=== PATIENT | male | born 1955 | race Hispanic/Latino ===

== ENCOUNTER 2017-03-19 23:21 | Emergency (ER) | payer MEDICARE ==
[2017-03-20 00:41] LABS: Basophils % (Auto) 0.7 % (0.0-1.8); Eosinophils # (Auto) 0.1 K/mm3 (0.0-0.4); Eosinophils % (Auto) 1.4 % (0.0-4.3); Hematocrit 42.5 % (35.5-45.6); Hemoglobin 14.2 gm/dl (11.8-15.2); Lymphocytes # (Auto) 0.9 K/mm3 (1.2-5.4); Lymphocytes % (Auto) 12.8 % (13.4-35.0); Mean Corpuscular HGB Conc 33 % (32-34); Mean Corpuscular Hemoglobin 29 pg (28-32); Mean Corpuscular Volume 86 fl (84-94); Monocytes # (Auto) 0.5 K/mm3 (0.0-0.8); Monocytes % (Auto) 7.2 % (0.0-7.3); Platelet Count 152 K/mm3 (140-440); Red Blood Count 4.96 M/mm3 (3.65-5.03); Red Cell Distribution Width 15.6 % (13.2-15.2)
[2017-03-20 01:14] LABS: Albumin 3.7 g/dL (3.9-5)
[2017-03-20 02:32] VITALS: BP 155/120
--- NOTE | 2017-03-20 03:46 | Emergency Department Report ---
ED General Adult HPI - General Chief complaint: Overdose Stated complaint: HYPERGLYCEMIA/POSS OVERDOSE Time Seen by Provider: 03/20/17 03:34 Source: patient, EMS (ems notes not available at time of chart dictation), RN notes reviewed, old records reviewed Mode of arrival: Stretcher Limitations: No Limitations - History of Present Illness Initial comments: This is a 61-year-old male who was previously unknown to this provider, primary care doctor Dr. Phan Past medical history includes heart disease, diabetes, hypertension, high cholesterol, hypothyroidism, parkinsonism, depression with anxiety, peripheral neuropathy, Patient also has chronic pain, and falls with local pain specialist, Dr. Jose J Burgess Patient reports taking Roxicodone every 8 hours as needed for pain, Duncan, every 8 hours as needed for pain, and also takes as needed Xanax. The patient is brought to the hospital by EMS because of concern of accidental overdose. The patient is accompanied by family, who report that they were with the patient , in that he had an episode of talking strangely and seemingly becoming unresponsive. There is concern that the patient may have accidentally taken an exit tablet of his Roxicodone. All of his symptoms were resolved with Narcan, and the patient really denies headache, neck pain, chest pain, abdominal pain, shortness of breath, homicidality, suicidality, irritative/ obstructive urinary symptoms. -: Sudden Consistency: now resolved Improves with: medication Worsens with: none Associated Symptoms: denies: confusion, chest pain, cough, diaphoresis, fever/ chills, loss of appetite, malaise, nausea/vomiting, rash, shortness of breath, syncope, weakness - Related Data Home Medications Medication Instructions Recorded Confirmed Last Taken Finasteride [Propecia] 5 mg PO QDAY 06/23/13 04/16/15 04/15/15 Gabapentin [Neurontin] 600 mg PO Q8H 06/23/13 04/16/15 04/15/15 Simvastatin [Zocor TAB] 40 mg PO QHS 06/23/13 04/16/15 04/15/15 Insulin NPH, Human [NovoLIN N] unit SUB-Q 04/16/15 04/15/15 Insulin Regular, Human [HumuLIN R] unit IJ 04/16/15 04/15/15 Previous Rx's Medication Instructions Recorded Last Taken Type Amoxicillin/K Clav Tab [Augmentin 1 each PO Q12HR #30 tablet 04/22/15 Unknown Rx 875MG TAB] Insulin NPH, Human [NovoLIN N] 20 unit SUB-Q BIDDIAB #1 bottle 04/22/15 Unknown Rx Lisinopril [Zestril TAB] 20 mg PO QPM #30 tablet 04/22/15 Unknown Rx Metoprolol [Lopressor TAB] 25 mg PO BID #60 tablet 04/22/15 Unknown Rx Oxycodone HCl [Roxicodone TAB] 15 mg PO TID PRN #30 tablet 04/22/15 Unknown Rx Simvastatin [Zocor TAB] 40 mg PO QHS tablet 04/22/15 Unknown Rx Sulfamethoxazole/Trimethoprim 1 each PO Q12HR 20 Days tablet 04/22/15 Unknown Rx [Bactrim DS TAB] Aspirin EC [Aspirin Enteric Coated 81 mg PO QDAY #30 tablet. 06/05/15 Unknown Rx TAB] Clopidogrel [Plavix] 75 mg PO QDAY #30 tablet 06/05/15 Unknown Rx Naloxone HCl [Narcan] 4 mg NS Q1HR PRN #10 spray 03/20/17 Unknown Rx Allergies Allergy/AdvReac Type Severity Reaction Status Date / Time No Known Allergies Allergy Verified 03/19/17 23:45 ED Review of Systems ROS: Stated complaint: HYPERGLYCEMIA/POSS OVERDOSE Other details as noted in HPI ED Past Medical Hx - Past Medical History Previous Medical History?: Yes Hx Hypertension: Yes Hx Heart Attack/AMI: Yes Hx Congestive Heart Failure: No Hx Diabetes: Yes Hx Deep Vein Thrombosis: No Hx Arthritis: Yes Hx Asthma: No Hx COPD: No Additional medical history: Fibromyalgia, Parkinson'sPossible Anemia (has been transfused before) - Surgical History Past Surgical History?: Yes Hx Pacemaker: No Hx Internal Defibrillator: No Additional Surgical History: Diabetes-related foot surgeries - Social History Smoking Status: Never Smoker Substance Use Type: None - Medications Home Medications: Home Medications Medication Instructions Recorded Confirmed Last Taken Type Finasteride [Propecia] 5 mg PO QDAY 06/23/13 04/16/15 04/15/15 History Gabapentin [Neurontin] 600 mg PO Q8H 06/23/13 04/16/15 04/15/15 History Simvastatin [Zocor TAB] 40 mg PO QHS 06/23/13 04/16/15 04/15/15 History Insulin NPH, Human [NovoLIN N] unit SUB-Q 04/16/15 04/15/15 History Insulin Regular, Human [HumuLIN R] unit IJ 04/16/15 04/15/15 History Amoxicillin/K Clav Tab [Augmentin 1 each PO Q12HR #30 tablet 04/22/15 Unknown Rx 875MG TAB] Insulin NPH, Human [NovoLIN N] 20 unit SUB-Q BIDDIAB #1 bottle 04/22/15 Unknown Rx Lisinopril [Zestril TAB] 20 mg PO QPM #30 tablet 04/22/15 Unknown Rx Metoprolol [Lopressor TAB] 25 mg PO BID #60 tablet 04/22/15 Unknown Rx Oxycodone HCl [Roxicodone TAB] 15 mg PO TID PRN #30 tablet 04/22/15 Unknown Rx Simvastatin [Zocor TAB] 40 mg PO QHS tablet 04/22/15 Unknown Rx Sulfamethoxazole/Trimethoprim 1 each PO Q12HR 20 Days tablet 04/22/15 Unknown Rx [Bactrim DS TAB] Aspirin EC [Aspirin Enteric Coated 81 mg PO QDAY #30 tablet.dr 06/05/15 Unknown Rx TAB] Clopidogrel [Plavix] 75 mg PO QDAY #30 tablet 06/05/15 Unknown Rx Naloxone HCl [Narcan] 4 mg NS Q1HR PRN #10 spray 03/20/17 Unknown Rx ED Physical Exam - General Limitations: No Limitations General appearance: alert, in no apparent distress - Head Head exam: Present: atraumatic, normocephalic - Eye Eye exam: Present: normal appearance, EOMI, other (pupils are 2 mm bilaterally, and status post cataract surgery.). Absent: nystagmus - ENT ENT exam: Present: normal exam, normal orophraynx, mucous membranes moist, normal external ear exam - Neck Neck exam: Present: normal inspection, full ROM - Respiratory Respiratory exam: Present: normal lung sounds bilaterally. Absent: respiratory distress - Cardiovascular Cardiovascular Exam: Present: regular rate, irregular rhythm, normal heart sounds. Absent: systolic murmur, diastolic murmur, rubs, gallop - GI/Abdominal GI/Abdominal exam: Present: soft, normal bowel sounds. Absent: distended, tenderness, guarding, rebound, rigid, pulsatile mass - Rectal Rectal exam: Present: deferred - Extremities Exam Extremities exam: Present: normal inspection, full ROM, normal capillary refill. Absent: pedal edema, joint swelling, calf tenderness - Back Exam Back exam: Present: normal inspection, full ROM. Absent: tenderness, CVA tenderness (R), paraspinal tenderness, vertebral tenderness - Neurological Exam Neurological exam: Present: alert, oriented X3, CN II-XII intact, other ( Extraocular movements intact. Tongue midline. No facial droop. Facial sensation intact to light touch in the V1, V2, V3 distribution bilaterally. 5 and 5 strength in 4 extremities.. Sensation is intact to light touch in 4 extremities.). Absent: motor sensory deficit - Psychiatric Psychiatric exam: Present: normal affect, normal mood. Absent: homicidal ideation, suicidal ideation - Skin Skin exam: Present: warm, dry, intact, normal color. Absent: rash ED Course Vital Signs 03/20/17 03/20/17 03/20/17 01:30 01:43 01:45 Temperature 97.5 F L Pulse Rate 93 H 96 H Respiratory 14 8 L Rate Blood Pressure 155/89 Blood Pressure 149/103 [Left] O2 Sat by Pulse 91 98 96 Oximetry 03/20/17 03/20/17 03/20/17 02:01 02:02 02:15 Temperature Pulse Rate 96 H 93 H Respiratory 19 16 11 L Rate Blood Pressure 149/82 155/120 Blood Pressure [Left] O2 Sat by Pulse 97 98 99 Oximetry ED Medical Decision Making - Lab Data Result diagrams: 03/20/17 00:10 03/20/17 00:10 Vital Signs 03/20/17 03/20/17 03/20/17 01:30 01:43 01:45 Temperature 97.5 F L Pulse Rate 93 H 96 H Respiratory 14 8 L Rate Blood Pressure 155/89 Blood Pressure 149/103 [Left] O2 Sat by Pulse 91 98 96 Oximetry 03/20/17 03/20/17 03/20/17 02:01 02:02 02:15 Temperature Pulse Rate 96 H 93 H Respiratory 19 16 11 L Rate Blood Pressure 149/82 155/120 Blood Pressure [Left] O2 Sat by Pulse 97 98 99 Oximetry Lab Results 03/20/17 03/20/17 03/20/17 Range/Units 00:10 00:10 00:10 WBC 7.3 (4.5-11.0) K/mm3 RBC 4.96 (3.65-5.03) M/mm3 Hgb 14.2 (11.8-15.2) gm/dl Hct 42.5 (35.5-45.6) % MCV 86 (84-94) fl MCH 29 (28-32) pg MCHC 33 (32-34) % RDW 15.6 H (13.2-15.2) % Plt Count 152 (140-440) K/mm3 Lymph % (Auto) 12.8 L (13.4-35.0) % Victoria % (Auto) 7.2 (0.0-7.3) % Eos % (Auto) 1.4 (0.0-4.3) % Baso % (Auto) 0.7 (0.0-1.8) % Lymph # 0.9 L (1.2-5.4) K/mm3 Victoria # 0.5 (0.0-0.8) K/mm3 Eos # 0.1 (0.0-0.4) K/mm3 Baso # 0.0 (0.0-0.1) K/mm3 Seg Neutrophils % 77.9 H (40.0-70.0) % Seg Neutrophils # 5.7 (1.8-7.7) K/mm3 Sodium 137 (137-145) mmol/L Potassium 4.7 (3.6-5.0) mmol/L Chloride 97.6 L (98-107) mmol/L Carbon Dioxide 28 (22-30) mmol/L Anion Gap 16 mmol/L BUN 26 H (9-20) mg/dL Creatinine 1.5 (0.8-1.5) mg/dL Estimated GFR 48 ml/min BUN/Creatinine Ratio 17 % Glucose 424 H (75-100) mg/dL Calcium 9.0 (8.4-10.2) mg/dL Total Bilirubin 0.30 (0.1-1.2) mg/dL AST 22 (5-40) units/L ALT 20 (7-56) units/L Alkaline Phosphatase 84 (35-129) units/L Total Protein 6.5 (6.3-8.2) g/dL Albumin 3.7 L (3.9-5) g/dL Albumin/Globulin Ratio 1.3 % TSH 10.730 H (0.270-4.200) mlU/mL Salicylates (2.8-20.0) mg/dL Acetaminophen (10.0-30.0) ug/mL Plasma/Serum Alcohol (0-0.07) gm% 03/20/17 03/20/17 03/20/17 Range/Units 00:10 00:10 00:10 WBC (4.5-11.0) K/mm3 RBC (3.65-5.03) M/mm3 Hgb (11.8-15.2) gm/dl Hct (35.5-45.6) % MCV (84-94) fl MCH (28-32) pg MCHC (32-34) % RDW (13.2-15.2) % Plt Count (140-440) K/mm3 Lymph % (Auto) (13.4-35.0) % Victoria % (Auto) (0.0-7.3) % Eos % (Auto) (0.0-4.3) % Baso % (Auto) (0.0-1.8) % Lymph # (1.2-5.4) K/mm3 Victoria # (0.0-0.8) K/mm3 Eos # (0.0-0.4) K/mm3 Baso # (0.0-0.1) K/mm3 Seg Neutrophils % (40.0-70.0) % Seg Neutrophils # (1.8-7.7) K/mm3 Sodium (137-145) mmol/L Potassium (3.6-5.0) mmol/L Chloride (98-107) mmol/L Carbon Dioxide (22-30) mmol/L Anion Gap mmol/L BUN (9-20) mg/dL Creatinine (0.8-1.5) mg/dL Estimated GFR ml/min BUN/Creatinine Ratio % Glucose (75-100) mg/dL Calcium (8.4-10.2) mg/dL Total Bilirubin (0.1-1.2) mg/dL AST (5-40) units/L ALT (7-56) units/L Alkaline Phosphatase (35-129) units/L Total Protein (6.3-8.2) g/dL Albumin (3.9-5) g/dL Albumin/Globulin Ratio % TSH (0.270-4.200) mlU/mL Salicylates < 0.3 L (2.8-20.0) mg/dL Acetaminophen < 15.0 (10.0-30.0) ug/mL Plasma/Serum Alcohol < 0.01 (0-0.07) gm% - EKG Data -: EKG Interpreted by Me - EKG Data 03/20/17 05:33 Atrial fibrillation, 101 bpm, left axis deviation, QTC prolonged, abnormal EKG, not consistent with ST elevation myocardial infarction - Medical Decision Making Differential diagnoses, including but not limited to: Accidental overdose, medical clearance, chronic pain Assessment and plan: 61-year-old male status post probable accidental overdose on OxyContin. The patient is currently afebrile with reassuring vital signs, clinically sober, has a GCS of 15, with an NIH score of 0, he is not homicidal or suicidal, he does not require 1013. Patient observed in the ER for 6 hours without clinical decompensation, he is saturating well, protecting his airway, and in no distress. I have advised the patient and family that the patient should taper down on his chronic sedating and narcotic pain medicines, that he can follow-up with his pain specialist for this. Patient will also be discharged with a Narcan prescription which his family feels comfortable to admit Mr. Incidentally found to be in A. fib, medications reveal that patient takes aspirin and Plavix, and he is referred to an outpatient log handler to follow up for this. Return precautions are reviewed. Critical care attestation.: If time is entered above; I have spent that time in minutes in the direct care of this critically ill patient, excluding procedure time. ED Disposition Clinical Impression: Unresponsive episode Disposition: DC-01 TO HOME OR SELFCARE Is pt being admited?: No Does the pt Need Aspirin: No Condition: Good Instructions: Narcotic Pain Management (ED), Opioid Withdrawal (ED) Additional Instructions: Continue current outpatient medications. Make certain to continue aspirin and Plavix. I recommend tapering down and and eventually discontinuing chronic narcotic therapy. Narcotic medications are dangerous, and can cause respiratory depression, , paralysis, loss of quality of life. Follow-up with your primary care doctor or pain specialist as soon as possible to evaluate de escalation of narcotic therapies. Please note that EKG demonstrated the patient is in atrial fibrillation. This is a condition that can put a patient at risk for stroke. Continue aspirin and Plavix, and follow-up with either her primary care doctor or log handler for this within the next 5-7 days. If the patient develops altered mental status, difficulty breathing, Narcan should be applied as directed on the label. If the patient develops headache, neck pain, chest pain, abdominal pain, shortness of breath, altered mental status, confusion, projectile vomiting, inability to tolerate liquid feeds, please return to the emergency room right away. Referrals: BARI ESQUEDA MD [Primary Care Provider] - 3-5 Days JOSE J GUZMAN MD [Staff Physician] - 3-5 Days [facility] [Provider Group] - 3-[address] [facility] [Provider Group] - 3-5 Days
== END 2017-03-20 06:10 | disposition home or self-care (01) ==
LOC: ED 23:21
DX: R40.20 Unspecified coma (principal); E11.9 Type 2 diabetes mellitus without complications; I10 Essential (primary) hypertension; I25.2 Old myocardial infarction; M19.90 Unspecified osteoarthritis, unspecified site; Z79.4 Long term (current) use of insulin
CPT/HCPCS: 36415; 80053; 84443; 85025; 93005; 93010; 99284; G0480; 80320

== ENCOUNTER 2018-11-01 18:13 | Emergency (ER) | payer MEDICARE ==
--- NOTE | 2018-11-01 19:40 | Emergency Department Report ---
- General Chief Complaint: Laceration/Recheck/Suture Stated Complaint: DIABETIC FOOT /INJURY Time Seen by Provider: 11/01/18 19:32 Source: EMS Mode of arrival: Stretcher Limitations: Physical Limitation - History of Present Illness Initial Comments: Patient is a 63-year-old male that is emergency room with complaints of bilateral feet abrasions. Patient states that he was walking up the stairs and scraped the anterior aspect of his toes. Patient denies pain. Patient states incident place yesterday. Patient states that he's had a long history of neuropathy and diabetes. Patient denies fever or chills. Patient denies purulent discharge. Patient states the right foot toes have stopped bleeding but the left foot toes are still oozing blood. Patient denies red streaking. Patient denies fall. -: Sudden - Related Data Home Medications Medication Instructions Recorded Confirmed Last Taken Gabapentin [Neurontin] 600 mg PO QID 06/23/13 02/15/18 04/12/17 600mg ALPRAZolam [Xanax] 1 mg PO DAILY 02/15/18 02/15/18 Unknown Apixaban [Eliquis] 5 mg PO BID 02/15/18 02/15/18 Unknown Cholecalciferol Vit D3 [Vitamin D3 1,000 unit PO QDAY 02/15/18 02/15/18 Unknown 1,000 UNIT TAB] Duloxetine HCl [Cymbalta] 60 mg PO DAILY 02/15/18 02/15/18 Unknown ISOSORBIDE MONOnitrate [Imdur ER] 30 mg PO DAILY 02/15/18 02/15/18 Unknown Insulin NPH/Regular [NovoLIN 70/30] 40 units SUB-Q QAM&QHS 02/15/18 02/15/18 Unknown Insulin Regular, Human [Novolin R] 1 dose SUB-Q TIDAC 02/15/18 02/15/18 Unknown Levothyroxine [Synthroid] 75 mcg PO QDAY 02/15/18 02/15/18 Unknown Linaclotide [Linzess] 145 mcg PO QDAY 02/15/18 02/15/18 Unknown Multivitamin Tab [Multiple Vitamin 1 each PO DAILY 02/15/18 02/15/18 Unknown TAB (Theragran)] Oxycodone HCl [roxiCODONE] 30 mg PO TID PRN 02/15/18 02/15/18 Unknown Previous Rx's Medication Instructions Recorded Last Taken Type Amiodarone [Cordarone 200 MG TAB] 200 mg PO QDAY #30 tablet 07/14/17 Unknown Rx AtorvaSTATin [Lipitor] 40 mg PO QHS #30 tablet 07/14/17 Unknown Rx levoFLOXacin [Levaquin TAB] 750 mg PO QDAY #7 tablet 02/16/18 Unknown Rx Mupirocin [Bactroban 2%] 1 applic TP BID #1 tube 07/20/18 Unknown Rx oxyCODONE /ACETAMINOPHEN [Percocet 1 tab PO Q6H PRN #15 tablet 07/20/18 Unknown Rx 5/325 mg] Sulfamethoxazole/Trimethoprim 1 each PO BID 10 Days #20 tablet 11/01/18 Unknown Rx [Bactrim DS TAB] Allergies Allergy/AdvReac Type Severity Reaction Status Date / Time No Known Allergies Allergy Verified 03/19/17 23:45 ED Review of Systems ROS: Stated complaint: DIABETIC FOOT /INJURY Other details as noted in HPI Constitutional: denies: chills, fever Eyes: denies: eye pain, eye discharge, vision change ENT: denies: ear pain, throat pain Respiratory: denies: cough, shortness of breath, wheezing Cardiovascular: denies: chest pain, palpitations Endocrine: no symptoms reported Gastrointestinal: denies: abdominal pain, nausea, diarrhea Genitourinary: denies: urgency, dysuria Musculoskeletal: denies: back pain, joint swelling, arthralgia Skin: denies: rash, lesions Neurological: denies: headache, weakness, paresthesias Psychiatric: denies: anxiety, depression Hematological/Lymphatic: denies: easy bleeding, easy bruising ED Past Medical Hx - Past Medical History Previous Medical History?: Yes Hx Hypertension: Yes Hx CVA: No Hx Heart Attack/AMI: Yes Hx Congestive Heart Failure: Yes Hx Diabetes: Yes Hx Deep Vein Thrombosis: No Hx Pulmonary Embolism: No Hx GERD: No Hx Liver Disease: No Hx Renal Disease: Yes Hx Sickle Cell Disease: No Hx Arthritis: Yes Hx Headaches / Migraines: No Hx Seizures: No Hx Kidney Stones: No Hx Psychiatric Treatment: No Hx Asthma: No Hx COPD: No Hx Tuberculosis: No Hx Dementia: No Hx HIV: No Additional medical history: Fibromyalgia, Parkinson'sPossible Anemia (has been transfused before) - Surgical History Past Surgical History?: Yes Hx Coronary Stent: No Hx Open Heart Surgery: No Hx Pacemaker: No Hx Internal Defibrillator: No Hx Cholecystectomy: No Hx Appendectomy: No Hx Breast Surgery: No Additional Surgical History: Diabetes-related foot surgeries - Family History Family history: no significant - Social History Smoking Status: Never Smoker Substance Use Type: None - Medications Home Medications: Home Medications Medication Instructions Recorded Confirmed Last Taken Type Gabapentin [Neurontin] 600 mg PO QID 06/23/13 02/15/18 04/12/17 History 600mg Amiodarone [Cordarone 200 MG TAB] 200 mg PO QDAY #30 tablet 07/14/17 02/15/18 Unknown Rx AtorvaSTATin [Lipitor] 40 mg PO QHS #30 tablet 07/14/17 02/15/18 Unknown Rx ALPRAZolam [Xanax] 1 mg PO DAILY 02/15/18 02/15/18 Unknown History Apixaban [Eliquis] 5 mg PO BID 02/15/18 02/15/18 Unknown History Cholecalciferol Vit D3 [Vitamin D3 1,000 unit PO QDAY 02/15/18 02/15/18 Unknown History 1,000 UNIT TAB] Duloxetine HCl [Cymbalta] 60 mg PO DAILY 02/15/18 02/15/18 Unknown History ISOSORBIDE MONOnitrate [Imdur ER] 30 mg PO DAILY 02/15/18 02/15/18 Unknown History Insulin NPH/Regular [NovoLIN 70/30] 40 units SUB-Q QAM&QHS 02/15/18 02/15/18 Unknown History Insulin Regular, Human [Novolin R] 1 dose SUB-Q TIDAC 02/15/18 02/15/18 Unknown History Levothyroxine [Synthroid] 75 mcg PO QDAY 02/15/18 02/15/18 Unknown History Linaclotide [Linzess] 145 mcg PO QDAY 02/15/18 02/15/18 Unknown History Multivitamin Tab [Multiple Vitamin 1 each PO DAILY 02/15/18 02/15/18 Unknown History TAB (Theragran)] Oxycodone HCl [roxiCODONE] 30 mg PO TID PRN 02/15/18 02/15/18 Unknown History levoFLOXacin [Levaquin TAB] 750 mg PO QDAY #7 tablet 02/16/18 Unknown Rx Mupirocin [Bactroban 2%] 1 applic TP BID #1 tube 07/20/18 Unknown Rx oxyCODONE /ACETAMINOPHEN [Percocet 1 tab PO Q6H PRN #15 tablet 07/20/18 Unknown Rx 5/325 mg] Sulfamethoxazole/Trimethoprim 1 each PO BID 10 Days #20 tablet 11/01/18 Unknown Rx [Bactrim DS TAB] ED Physical Exam - General Limitations: No Limitations General appearance: alert, in no apparent distress - Head Head exam: Present: atraumatic, normocephalic - Eye Eye exam: Present: normal appearance - ENT ENT exam: Present: mucous membranes moist - Neck Neck exam: Present: normal inspection - Respiratory Respiratory exam: Present: normal lung sounds bilaterally. Absent: respiratory distress, wheezes - Cardiovascular Cardiovascular Exam: Present: regular rate, normal rhythm. Absent: systolic murmur, diastolic murmur, rubs, gallop - GI/Abdominal GI/Abdominal exam: Present: soft, normal bowel sounds - Rectal Rectal exam: Present: deferred - Extremities Exam Extremities exam: Present: normal inspection (except for bilateral feet. Abrasions noted to toes on both feet. No signs of infection. No redness. No swelling.), normal capillary refill. Absent: pedal edema, joint swelling, calf tenderness - Back Exam Back exam: Present: normal inspection - Neurological Exam Neurological exam: Present: alert, oriented X3 - Psychiatric Psychiatric exam: Present: normal affect, normal mood - Skin Skin exam: Present: warm, dry, normal color, abrasion (abrasions noted to bilateral toes.). Absent: rash ED Course Vital Signs 11/01/18 11/01/18 11/01/18 19:19 19:26 21:35 Temperature 98 F Pulse Rate 86 75 66 Respiratory 18 18 14 Rate Blood Pressure 138/76 Blood Pressure 133/68 157/77 [Right] O2 Sat by Pulse 98 95 97 Oximetry - Reevaluation(s) Reevaluation #1: Discussed all results patient. Patient's x-ray within normal limits. No bone involvement noted. Patient is stable for discharge. Patient given discharge instructions. Patient voiced understanding of discharge instructions. Patient agrees with plan of care and discharged. The patient is diabetic the patient was placed on antibiotics. Patient agrees with the antibody therapy. 11/01/18 21:06 ED Medical Decision Making - Radiology Data Radiology results: report reviewed, image reviewed BILATERAL FEET, 4 VIEWS, 11/01/2018 INDICATION / CLINICAL INFORMATION: abrasions. toe injury. COMPARISON: None available. FINDINGS: Left foot: There is diffuse osteopenia throughout the bones of the foot. The fifth digit and fifth metatarsal have been surgically removed, as have some of the distal phalanges. There is prominent degenerative change throughout the mid foot and ankle region. I do not see acute fracture. There is diffuse soft tissue swelling of the forefoot. No visible gas or obvious bone erosion noted. Right foot: There has been partial surgical amputation of the fifth metatarsal. The fifth toe is absent as are some of the distal phalanges. I do not see acute fracture or dislocation. No obvious gas collection within the soft tissues. Mild to moderate degenerative changes are seen throughout the midfoot. IMPRESSION: 1. No evidence for fracture or dislocation. 2. Mild diffuse soft tissue swelling of the left forefoot without focal abnormality. - Medical Decision Making Patient is a 63-year-old male Emergent with complaints of toe abrasions. Patient denies other trauma. Patient had x-rays done which showed no acute fractures. Patient will be treated with prophylactic antibiotics due to the fact the patient is a diabetic. Patient given a prescription for Bactrim. Patient given wound care instructions. Patient also given signs of infection. Patient will need to follow-up care and is primary care. Patient had sterile dressing applied to his toes. - Differential Diagnosis abrasion. Injury. Fracture. Critical care attestation.: If time is entered above; I have spent that time in minutes in the direct care of this critically ill patient, excluding procedure time. ED Disposition Clinical Impression: Toe abrasion, non-infected Disposition: DC-01 TO HOME OR SELFCARE Is pt being admited?: No Does the pt Need Aspirin: No Condition: Stable Instructions: Abrasion (ED) Additional Instructions: Patient to follow up with primary care in 2-3 days. Patient to follow-up with wound care in 2 days. Patient to return to ER if condition worsens. patient to take Tylenol when necessary for pain. Patient to continue all medications. Patient to increase water. Patient elevated limbs. Patient to keep sites warm and dry. Patient to take antibiotics as directed. patient to rest. Prescriptions: Sulfamethoxazole/Trimethoprim [Bactrim DS TAB] 1 each PO BID 10 Days #20 tablet Referrals: ANAMIKA SCHWARTZCOUCH MD URIEL [Primary Care Provider] - 2-3 Days Time of Disposition: 21:09
--- NOTE | 2018-11-01 20:18 | XRay Report ---
BILATERAL FEET, 4 VIEWS, 11/01/2018 INDICATION / CLINICAL INFORMATION: abrasions. toe injury. COMPARISON: None available. FINDINGS: Left foot: There is diffuse osteopenia throughout the bones of the foot. The fifth digit and fifth me tatarsal have been surgically removed, as have some of the distal phalanges. There is prominent degenerative change throughout the mid foot and ankle region. I do not see acute f racture. There is diffuse soft tissue swelling of the forefoot. No visible gas or obvious bone erosio n noted. Right foot: There has been partial surgical amputation of the fifth metatarsal. The fifth toe is abse nt as are some of the distal phalanges. I do not see acute fracture or dislocation. No obvious gas collection within the soft tissues. Mild t o moderate degenerative changes are seen throughout the midfoot. IMPRESSION: 1. No evidence for fracture or dislocation. 2. Mild diffuse soft tissue swelling of the left forefoot without focal abnormality. Signer Name: Opal Nesbitt MD Signed: 11/01/2018 8:13 PM Workstation Name: [id number]
[2018-11-01 21:45] VITALS: BP 157/77
== END 2018-11-01 21:40 | disposition home or self-care (01) ==
LOC: ED 18:13
DX: S90.415A Abrasion, left lesser toe(s), initial encounter (principal); S90.414A Abrasion, right lesser toe(s), initial encounter; I11.0 Hypertensive heart disease with heart failure; I50.9 Heart failure, unspecified; E11.9 Type 2 diabetes mellitus without complications; M19.90 Unspecified osteoarthritis, unspecified site; Z98.890 Other specified postprocedural states; Z79.4 Long term (current) use of insulin; W22.8XXA Striking against or struck by other objects, initial encounter; Y93.89 Activity, other specified; Y92.89 Other specified places as the place of occurrence of the external cause; Y99.8 Other external cause status
CPT/HCPCS: 99284